=== PATIENT | male | born 1990 | race Caucasian/White ===

== ENCOUNTER 2020-10-17 03:04 | Emergency (ER) | payer SELFPAY ==
[2020-10-17 03:05] VITALS: BP 152/109; PULSE 108; RESP 18; TEMP 36.5; O2SAT 95; BMI 23.1
--- NOTE | 2020-10-17 03:20 | ED.DCSUM_ITS ---
History of Present Illness Chief Complaint: Complaint Informant: Patient Narrative: he states he is noticed some dysuria with voiding. Wanted to make sure nothing was okay. Having unprotected sex with one partner. No testicular lesions or pain. No scrotal lesions or pain. Denies any other symptoms. This just started today. Wanted to make sure nothing was okay with his skin. Denies any other symptoms. No discharge Past Medical History - Allergies and Home Meds Allergies/Adverse Reactions: Allergies No Known Allergies Allergy (Verified 10/17/20 03:08) Primary Care Physician: Sen Galicia III, MD [Primary Care Provider] - Prior records reviewed: Yes Past Medical History: None Surgical History: - - Reviewed Smoking Status: Current every day smoker Alcohol: None Drugs: None Review of Systems General: Denies: Chills, Fever, Sweats Eyes: Denies: Visual changes - bilaterally, Diplopia ENT: Denies: Rhinorrhea, Sore throat Cardiovascular: Denies: Chest pain, Palpitations Respiratory: Denies: Dyspnea, Cough, Dyspnea on exertion Gastrointestinal: Denies: Abdominal pain, Nausea, Vomiting, Diarrhea, Melena, Hematochezia Genitourinary: Reports: Dysuria. Denies: Hematuria, Frequency Musculoskeletal: Denies: Back pain, Extremity Pain Skin: Denies: Rash, Wounds Neurological: Denies: Headache, Weakness, Numbness Physical Exam Vital Signs/Narrative: Vital Signs Temp Pulse Resp BP Pulse Ox 10/17/20 03:05 97.7 F L 108 H 18 152/109 H 95 General: Well nourished, Well developed, No Acute Distress Head: Normocephalic, Atraumatic Eyes: Perrl, EOMI ENT: Moist mucous membranes, No rhinorrhea Neck: Supple, Nontender Cardiovascular: Regular rate, Regular rhythm, No murmurs Respiratory: No distress, CTA bilaterally, Chest nontender Abdomen: Soft, Nontender, Nondistended, Normal bowel sounds : - - Genital exam normal. External exam and urethra normal. No discharge up on milking. Testicles normal. No lesions Back: Nontender, Normal Inspection Extremities: Nontender, No edema Skin: Normal color, No rash Neurological: Alert, Oriented x3, Cranial nerves II-XII grossly intact, Normal Strength, Normal Sensation Psychological: Normal affect, Normal Mood Diagnostic/Tx/Re-eval - Medical Decision Making Discussed case with patient. He would like gonorrhea and Chlamydia testing just to be safe. Also request treatment. Will be given ceftriaxone and azithromycin. We will follow-up for his test results and notify his partner if positive. Will avoid sex until test results if positive will avoid sex for 1 week ED Disposition - Plan for ED Patient: Disposition: Home or Assisted Living Diagnosis: Urethritis Instructions: ED STI Male Treated Referrals: Sen Galicia III, MD [Primary Care Provider] -
[2020-10-17] MEDS: Azithromycin 250 MG Tablet 1000 MG PO (03:27)
[2020-10-17] MEDS: Ceftriaxone 500 MG Vial 250 MG IM (03:40)
[2020-10-17 06:47] LABS: Chlamydia Trachomatis by PCR Negative (Negative); Neisserai gonorrhoeae by PCR Negative (Negative); Probe Check PASS; Sample Adequacy Control PASS; Specimen Processing Control PASS
== END 2020-10-17 05:17 | disposition home or self-care (01) ==
LOC: ED 05:15
PROVIDERS: Emergency Provider Emergency Medicine
DX: N34.2 Other urethritis (principal); F17.200 Nicotine dependence, unspecified, uncomplicated
CPT/HCPCS: 87491; 87591; 96372; 99283

== ENCOUNTER 2022-01-11 18:19 | Emergency (ER) | payer MEDICAID, SELFPAY ==
[2022-01-11 18:20] VITALS: BP 153/86; PULSE 106; RESP 17; TEMP 37.1; O2SAT 99; BMI 28.7
[2022-01-11 19:17] LABS: Absolute Lymphocyte Count 1.61 X10^3/uL (0.83-4.51); Absolute Neutrophil Count 7.3 X10^3/uL (2.0-7.7); Basophil# 0.03 X10^3/uL; Basophil% 0.3 % (0-1); Hematocrit 49.3 % (40-54); Hemoglobin 16.9 g/dL (13.0-16.5); Lymphocyte # 1.61 X10^3/ul (0.83-4.51); Mean Corp Hgb Conc 34.3 g/dL (32-36); Mean Corpuscular Hgb 32.9 pg (27.0-32.0); Mean Corpuscular Volume 95.9 fL (80-94); Mean Platelet Vol. 9.6 fl (6.2-12.0); Monocyte# 0.96 X10^3/uL; Monocyte% 9.5 % (0-10); NRBC Flagged by Analyzer 0 % (0-5); Neutrophil # 7.33 X10^3/uL (2.7-7.7); Neutrophil % 72.6 % (47-70); Platelet Count 281 K/mm3 (150-450); RBC Distribution Width CV 13.8 % (11.6-14.6); RBC Distribution Width SD 49.6 fl (35.1-43.9); Red Blood Count 5.14 M/mm3 (4.6-6.2); White Blood Count 10.1 K/mm3 (4.4-11.0)
[2022-01-11 19:38] LABS: Anion Gap 3 (5-15); BUN 10 mg/dL (7-18); Calcium,Total 9.1 mg/dL (8.5-10.1); Chloride 108 mmol/L (98-107); Creatinine, Serum 1.11 mg/dL (0.70-1.30); EST Glomerular Filtration Rate 83 mL/min (>60); Est Glom Filt Rate - Afr Amer 100 mL/min (>60); Glucose 113 mg/dL (74-106); Potassium 4.6 mmol/L (3.5-5.1); Sodium Level 140 mmol/L (136-145)
[2022-01-11 19:54] LABS: Bacteria 0 SEEN /hpf (None Seen); Mucous, Urine 0 SEEN /hpf (<or=2+); Red Blood Cells-Urine 0 SEEN /hpf (0-5); Squamous Epithelial Cells - UA 0 SEEN /hpf (0-5); White Blood Cells 0 SEEN /hpf (0-5)
[2022-01-11 19:55] LABS: Color, Urine Yellow (Yellow); Glucose, Dipstick Normal (Normal); Ketone-Dipstick Negative (Negative); Leukocyte Esterase-Dipstick Negative /ul (Negative); Nitrite-Dipstick Negative (Negative); Occult Blood-Urine Negative /ul (Negative); Protein-Dipstick 15 mg/dl (Negative); Urine Bilirubin Dipstick Negative (Negative); Urine Clarity Clear (Clear); Urine Urobilinogen Normal (Normal)
--- NOTE | 2022-01-11 19:58 | CM.ED ---
SW Note Referral Source: Case Find Referral Reason: No PCP SW met with patient. Patient reports no PCP. SW provided patient with [facility]. Patient reports no other needs or issues. SW remains available. Evelyne PIERCE
--- NOTE | 2022-01-11 20:20 | ED.VIS.GI ---
HPI HPI - GI History of Present Illness Chief Complaint: Abd Pain Informant: patient Abdominal Pain/Flank Pain Onset: Days (3) Timing: Continuous Quality: Aching Location: LUQ Current Severity: Moderate Maximum Severity: Moderate Worsened by: Food (Soon after it is swallowed and gets into his stomach), Movement and - (Taking deep breaths worsens pain when it is significant) Relieved by: Remaining Still and - (No improvement after bowel movements) Nausea/Vomiting/Emesis GI Symptom: Negative for Nausea and Vomiting Diarrhea/Melena/Hematochezia GI Symptom: Negative for Diarrhea, Melena and Hematochezia Associated Symptoms Associated Symptoms: Negative for Dysuria, Frequency, Hematuria and Urgency Narrative Narrative: Patient with left upper quadrant pain that radiates a little bit into his side for the last couple days, gradual in onset, worsening, worse when he eats and soon afterwards. He denies any nausea vomiting melena. No fevers or chills. No coughing although sometimes when the pain is bad it makes him feel little short of breath. No pain into his back. Occasionally radiates up towards his left chest. But not his shoulder. PFSH PFSH Medical History no medical history no medical history Home Medications dicyclomine 20 mg PO Q6H PRN PRN #20 capsule 01/11/22 [Rx Last Taken Unknown] pantoprazole [Protonix] 40 mg PO DAILY #30 tab 01/11/22 [Rx Last Taken Unknown] Allergy/AdvReac Type Severity Reaction Status Date / Time No Known Allergies Allergy Verified 01/11/22 18:19 Surgical History no surgical history no surgical history Social History Smoking Status: Current every day smoker tobacco type: cigarettes ROS ROS ED Constitutional Constitutional ED: Denies chills or fever(s) Eyes Eyes: Denies change in vision or diplopia ENT ENT ED: Denies rhinorrhea or sore throat Cardiovascular Cardiovascular: Denies chest pain or palpitations Respiratory/Chest Respiratory/Chest: Reports as per HPI and dyspnea; Denies cough Gastrointestinal Gastrointestinal: Reports as per HPI and abdominal pain; Denies diarrhea, nausea or vomiting Genitourinary Genitourinary ED: Denies dysuria or hematuria Musculoskeletal Musculoskeletal: Denies back pain or neck pain Integumentary Denies abscess or rash Neurologic Neurologic: Denies headache(s), paresthesias or weakness Psychiatric Psychiatric: Denies anxiety or suicidal thoughts EXAM Physical Exam Const Vital Signs: 01/11/22 18:20 01/11/22 21:00 Temperature 98.8 F Temperature Source Temporal Pulse Rate 106 H Respiratory Rate 17 18 Blood Pressure 153/86 H Blood Pressure Mean 108 Pulse Ox 99 Oxygen Delivery Method Room Air Positive well nourished and well developed General Appearance ED: well developed and NAD HEENT Reports moist mucous membranes normocephalic and atraumatic Eyes PERRL and EOMs intact bilaterally Neck full ROM and supple Resp normal respiratory effort, normal air movement, no retractions, no use of accessory muscles and clear to auscultation bilaterally Cardio regular rate, regular rhythm and no murmurs Rate: Negative for tachycardic GI non-distended GI Narrative: Point tender left upper quadrant subcostal. No other areas of tenderness. No guarding or rebound. Very benign abdomen otherwise. Auscultation: normoactive bowel sounds Palpation: soft Back/Spine no CVA tenderness General Back: other FROM Extremity normal to inspection General Extremety ED: Negative for edema, pulses abnormal or tenderness General Extremity: Negative for edema or pulses abnormal Neuro oriented x3, CN's II-XII intact bilaterally and no sensory deficits noted Sensorium / Orientation: awake and alert Motor Exam: strength 5/5 throughout Skin no rashes or lesions noted and no wounds MDM MDM MDM Narrative Medical decision making narrative: Basic labs urinalysis unremarkable. I suspect this is upper GI likely stomach in etiology. Therefore he was treated with a GI cocktail, small dose of Toradol, dicyclomine, and pantoprazole orally and observed. On reevaluation he states he feels a lot better his discomfort is gone his exam is improved, and I think we can discharge him in stable condition without imaging at this time since this sounds like GI related pain. We will give him some prescriptions and advise outpatient follow-up. Apparently the patient is in 180 right now, for addiction issues. Has no PCP. Referred to the next doctor on the unassigned list Dr. Schafer. Lab Data Attestation: I reviewed the patient's lab results. Labs: Laboratory Results - last 24 hr 01/11/22 01/11/22 01/11/22 19:05 19:05 19:45 WBC 10.1 RBC 5.14 Hgb 16.9 H Hct 49.3 MCV 95.9 H MCH 32.9 H MCHC 34.3 RDW Std Deviation 49.6 H RDW Coeff of Mireya 13.8 Plt Count 281 MPV 9.6 Immature Gran % (Auto) 0.600 Neut % (Auto) 72.6 H Lymph % (Auto) 16.0 L [place] % (Auto) 9.5 Eos % (Auto) 1.0 Baso % (Auto) 0.3 Absolute Neuts (auto) 7.3 Absolute Lymphs (auto) 1.61 Nucleated RBC % 0 Sodium 140 Potassium 4.6 Chloride 108 H Carbon Dioxide 29.0 Anion Gap 3 L BUN 10 Creatinine 1.11 Estim Creat Clear Calc 95.00 Est GFR (MDRD) Af Amer 100 Est GFR (MDRD) Non-Af 83 BUN/Creatinine Ratio 9.0 L Glucose 113 H Calcium 9.1 Urine Color Yellow Urine Clarity Clear Urine pH 5.0 Ur Specific Sisters 1.020 Urine Protein 15 H Urine Glucose (UA) Normal Urine Ketones Negative Urine Occult Blood Negative Urine Nitrite Negative Urine Bilirubin Negative Urine Urobilinogen Normal Ur Leukocyte Esterase Negative Urine RBC 0 SEEN Urine WBC 0 SEEN Ur Squamous Epith Cells 0 SEEN Urine Bacteria 0 SEEN Urine Mucus 0 SEEN Discharge Plan Triage Chief Complaint: Abd Pain ED Provider: Chivo Gomez Dx/Rx/DC Orders Clinical Impression: Acute abdominal pain in left upper quadrant Instructions: Abdominal Pain Prescriptions: New dicyclomine 10 MG capsule 20 mg PO Q6H PRN PRN (Reason: abdominal discomfort) Qty: 20 RF: 0 pantoprazole [Protonix] 40 mg tablet,delayed release (DR/EC) 40 mg PO DAILY Qty: 30 RF: 0 Primary Care Provider: Care Physician,No Primary Referrals: Amber Schafer DO [STAFF PHYSICIAN] - 1 Week if not improving Care Physician,No Primary [Primary Care Provider] - Disposition Disposition: Home, Self Care
[2022-01-11] MEDS: Pantoprazole Sodium 40 MG Tablet PO (20:35)
[2022-01-11] MEDS: Dicyclomine 10 MG Capsule 20 MG PO (20:35)
[2022-01-11] MEDS: Mag Hydrox/Al Hydrox/Simeth 30 ML UDC PO (20:36)
[2022-01-11] MEDS: Ketorolac 15 MG/ML Vial IV (20:36)
[2022-01-11 21:00] VITALS: RESP 18
== END 2022-01-11 22:19 | disposition home or self-care (01) ==
PROVIDERS: Emergency Provider Emergency Medicine; Visit Provider Emergency Medicine
DX: R10.12 Left upper quadrant pain (principal); F17.210 Nicotine dependence, cigarettes, uncomplicated
CPT/HCPCS: 80048; 81001; 85025; 96374; 99284

== ENCOUNTER 2022-10-27 10:44 | Emergency (ER) | payer OTHER, MEDICAID, SELFPAY ==
[2022-10-27] VITALS (14 sets, daily range): BP systolic 138–184; BP diastolic 74–126; PULSE 79–94; RESP 14–24; TEMP 36.6–36.7; O2SAT 95–100; BMI 32.1
--- NOTE | 2022-10-27 10:55 | CT_ITS ---
INDICATION: Trauma EXAMINATION: CT BRAIN - CT Head or Brain W/O Contrast Injection TECHNIQUE: Multiple axial images were obtained of the head without intravenous contrast. A radiation dose optimization technique was used for this scan. IV Contrast dosage and agent: None. COMPARISON: None FINDINGS: No acute intracranial hemorrhage. No significant midline shift. The ventricles are normal size and configuration for patient''s age. Matias-white matter differentiation is maintained. No acute infarct. No significant cerebral edema. No parenchymal masses. No acute calvarial fracture. Soft tissues are unremarkable. Orbits and globes are intact. Minimal mucosal thickening in the sinuses. Sinuses are overall patent. Mastoid air cells are clear. CT/Brain/Head without Contrast IMPRESSION: No acute intracranial findings. Electronically Signed: Candelario Flores, at 11:47 EST ,
--- NOTE | 2022-10-27 10:55 | CT_ITS ---
INDICATION: Trauma EXAMINATION: CT CERVICAL SPINE - CT Spine Cervical W/O Contrast Injection TECHNIQUE: Helically acquired images were obtained of the cervical spine. 2D reformatted images were reviewed. A radiation dose optimization technique was used for this scan. IV Contrast dosage and agent: None. COMPARISON: None. FINDINGS: No acute fracture, subluxation, or malalignment. Vertebral body heights and alignments are maintained. No spondylolisthesis. No significant degenerative changes. No destructive osseous lesions. Soft tissues are unremarkable. Visualized lung apices are clear. No other significant findings. CT/Spine Cervical without Contras IMPRESSION: No evidence of acute cervical spinal fracture or spondylolisthesis. Electronically Signed: Candelario Flores, at 11:50 EST ,
--- NOTE | 2022-10-27 10:58 | EDS_ITS ---
HPI History of Present Illness Chief Complaint: Trauma Informant: patient Narrative Narrative: Patient had a stack of wooden pallets that tipped over and fell on him. He does not think he lost consciousness but evidently there is reports of seeing that he might have. This is unclear. Patient's primary complaint is right forearm area pain. He has some pain in the right leg also. Although he has pain, he does not want any controlled substances for pain as he is a recovering addict and wants to stay off of these meds. He denies abdominal pain or chest pain. He denies pelvic pain. No trouble breathing. He is not sure if he has a headache. He states his arm hurts a lot so it is hard to tell. He denies numbness and tingling. [facility] Medical History (Updated 10/27/22 @ 15:[address] Yousif Gant MD) MRSA (methicillin resistant Staphylococcus aureus) carrier Substance abuse Viral meningitis Home Medications buprenorphine 8 mg-naloxone 2 mg sublingual film 1 film sublingual BID 10/27/22 [History Last Taken Unknown] bupropion HCl 150 mg 24 hr tablet, extended release 150 mg PO DAILY 10/27/22 [History Last Taken Unknown] buspirone 7.5 mg tablet 7.5 mg PO BID 10/27/22 [History Last Taken Unknown] hydroxyzine pamoate 25 mg capsule 25 mg PO TID PRN Anxiety 10/27/22 [History Last Taken Unknown] ketorolac 10 mg tablet 10 mg PO TID PRN pain 5 days #15 tabs 10/27/22 [Rx Last Taken Unknown] lamotrigine 100 mg tablet 100 mg PO DAILY 10/27/22 [History Last Taken Unknown] Allergy/AdvReac Type Severity Reaction Status Date / Time No Known Allergies Allergy Verified 10/27/22 10:50 Surgical History History of tonsillectomy Social History Smoking Status: Current every day smoker tobacco type: cigarettes ROS ROS ED Constitutional Constitutional ED: Denies chills or fever(s) Eyes Eyes: Denies change in vision ENT ENT ED: Denies rhinorrhea or sore throat Cardiovascular Cardiovascular: Denies chest pain, palpitations or racing heartbeat Respiratory/Chest Respiratory/Chest: Denies cough or dyspnea Gastrointestinal Gastrointestinal: Denies abdominal pain, nausea or vomiting Genitourinary Genitourinary ED: Denies hematuria Musculoskeletal Musculoskeletal: Reports arthralgias and other Details: Primary complaint is right forearm pain. ; Denies back pain Integumentary Reports Abrasions and other Details: Abrasions to right jarrell. Neurologic Neurologic: Denies paresthesias or weakness Psychiatric Psychiatric: Reports depression and other Details: Patient is on meds for depression Endocrine Endocrinology: Denies polydipsia or polyuria Hematologic/Lymphatic Hematologic/Lymphatic: Denies easy bleeding or easy bruising Allergic/Immunologic Allergic/Immunologic ED: Denies urticaria EXAM Physical Exam Const Vital Signs: 10/27/22 10:45 10/27/22 10:44 10/27/22 11:21 Temperature 97.9 F Temperature Source Temporal Pulse Rate 90 82 Pulse Rate [1 (Initial Baseline)] Pulse Rate [2] Pulse Rate [3] Respiratory Rate 14 14 Respiratory Rate [1 (Initial Baseline)] Respiratory Rate [2] Respiratory Rate [3] Respiratory Effort Normal Non-Labored Respiratory Depth Normal Respiratory Pattern Normal Blood Pressure 138/97 H 152/87 H Blood Pressure [1 (Initial Baseline)] Blood Pressure [2] Blood Pressure [3] Blood Pressure Mean 110 108 Pulse Ox 95 97 99 Oxygen Delivery Method Room Air Room Air Room Air Oxygen Delivery Method [1 (Initial Baseline)] Oxygen Delivery Method [2] Oxygen Delivery Method [3] Oxygen Flow Rate (L/min) Oxygen Flow Rate (L/min) [1 (Initial Baseline)] Oxygen Flow Rate (L/min) [2] Oxygen Flow Rate (L/min) [3] 10/27/22 11:44 10/27/22 12:44 10/27/22 13:00 Temperature Temperature Source Pulse Rate 85 83 80 Pulse Rate [1 (Initial Baseline)] Pulse Rate [2] Pulse Rate [3] Respiratory Rate 16 14 16 Respiratory Rate [1 (Initial Baseline)] Respiratory Rate [2] Respiratory Rate [3] Respiratory Effort Respiratory Depth Respiratory Pattern Blood Pressure 148/74 H 161/80 H 152/78 H Blood Pressure [1 (Initial Baseline)] Blood Pressure [2] Blood Pressure [3] Blood Pressure Mean 98 107 102 Pulse Ox 98 100 98 Oxygen Delivery Method Room Air Room Air Room Air Oxygen Delivery Method [1 (Initial Baseline)] Oxygen Delivery Method [2] Oxygen Delivery Method [3] Oxygen Flow Rate (L/min) Oxygen Flow Rate (L/min) [1 (Initial Baseline)] Oxygen Flow Rate (L/min) [2] Oxygen Flow Rate (L/min) [3] 10/27/22 13:48 10/27/22 13:55 10/27/22 14:12 Temperature Temperature Source Pulse Rate 83 Pulse Rate [1 (Initial Baseline)] 92 Pulse Rate [2] 79 Pulse Rate [3] 94 Respiratory Rate 15 Respiratory Rate [1 (Initial Baseline)] 16 Respiratory Rate [2] 24 H Respiratory Rate [3] 21 H Respiratory Effort Respiratory Depth Respiratory Pattern Blood Pressure 169/86 H Blood Pressure [1 (Initial Baseline)] 184/126 H Blood Pressure [2] 184/126 H Blood Pressure [3] 157/115 H Blood Pressure Mean Pulse Ox 100 Oxygen Delivery Method Nasal Cannula Room Air Oxygen Delivery Method [1 (Initial Baseline)] Non-Rebreather Oxygen Delivery Method [2] Non-Rebreather Oxygen Delivery Method [3] Non-Rebreather Oxygen Flow Rate (L/min) 2 Oxygen Flow Rate (L/min) [1 (Initial Baseline)] 15 Oxygen Flow Rate (L/min) [2] 15 Oxygen Flow Rate (L/min) [3] 15 10/27/22 14:17 10/27/22 14:07 10/27/22 14:00 Temperature Temperature Source Pulse Rate 81 Pulse Rate [1 (Initial Baseline)] Pulse Rate [2] Pulse Rate [3] Respiratory Rate 17 Respiratory Rate [1 (Initial Baseline)] Respiratory Rate [2] Respiratory Rate [3] Respiratory Effort Respiratory Depth Respiratory Pattern Blood Pressure 159/88 H Blood Pressure [1 (Initial Baseline)] Blood Pressure [2] Blood Pressure [3] Blood Pressure Mean 111 Pulse Ox 99 Oxygen Delivery Method Room Air Nasal Cannula Room Air Oxygen Delivery Method [1 (Initial Baseline)] Oxygen Delivery Method [2] Oxygen Delivery Method [3] Oxygen Flow Rate (L/min) 2 Oxygen Flow Rate (L/min) [1 (Initial Baseline)] Oxygen Flow Rate (L/min) [2] Oxygen Flow Rate (L/min) [3] 10/27/22 15:05 Temperature Temperature Source Pulse Rate 85 Pulse Rate [1 (Initial Baseline)] Pulse Rate [2] Pulse Rate [3] Respiratory Rate 16 Respiratory Rate [1 (Initial Baseline)] Respiratory Rate [2] Respiratory Rate [3] Respiratory Effort Respiratory Depth Respiratory Pattern Blood Pressure 147/88 H Blood Pressure [1 (Initial Baseline)] Blood Pressure [2] Blood Pressure [3] Blood Pressure Mean 107 Pulse Ox 97 Oxygen Delivery Method Oxygen Delivery Method [1 (Initial Baseline)] Oxygen Delivery Method [2] Oxygen Delivery Method [3] Oxygen Flow Rate (L/min) Oxygen Flow Rate (L/min) [1 (Initial Baseline)] Oxygen Flow Rate (L/min) [2] Oxygen Flow Rate (L/min) [3] Positive well nourished and well developed General Appearance ED: well developed HEENT HEENT Narrative: I do not see any external head trauma. atraumatic Eyes PERRL and EOMs intact bilaterally Neck Neck Narrative: C-collar is on and was kept on. I am not getting any deformity and neck tenderness. But the patient's arm is somewhat tender and this might distract him somewhat. Chest Wall inspection of chest normal and palpation of chest normal Chest Narrative: No tenderness with AP or lateral compression. No subcutaneous air. No crepitance. Resp normal respiratory effort and clear to auscultation bilaterally Cardio regular rhythm and no murmurs Rate: regular rate GI normal to inspection, nondistended, normoactive bowel sounds, non-tender and non-distended Back/Spine no thoracic nor lumbar tenderness; Negative for normal to inspection Extremity Extremity Narrative: Patient has deformity to his distal forearm just proximal to the wrist. He can wiggle all his fingers. He can tell me exactly what finger I am touching. I do not see any open areas. He also has an abrasion/contusion to his right anterior jarrell. No active bleeding. There is no deformity however though. No tenderness anywhere to the clavicles left upper or left lower extremities. No tenderness with compression of the pelvis. Neuro oriented x3, no focal motor deficits and no sensory deficits noted Sensorium / Orientation: alert; Negative for orientation impaired, lethargic or stuporous Psych mental status grossly normal Skin Skin Narrative: Abrasion as above. MDM MDM MDM Narrative Medical decision making narrative: Patient is given Toradol for pain. I think his chance of intracranial injury is extremely small but we will evaluate this. I will also give him Benadryl to see if this will help with relaxing him a little bit. I am trying to avoid narcotics or other controlled substance per patient request. My suspicion is we will likely need something to manage his pain but we will try to hold off as much as we can per patient request. Imaging shows acute displaced right distal radius fracture. No other acute process. CBC electrolytes urine are normal. I discussed risk benefits and options. We agreed to go with conscious sedation for reduction of wrist with splinting. This was done he tolerated well. See procedure note. I then discussed the case with orthopedics Dr. Ash. He will see him in follow-up probably on Tuesday. He may need surgery. I again talked with patient and family about pain control. He is resting very quietly now. We did give him some Ativan earlier to try to relax him and is helped him quite a bit. We are going to try avoiding narcotics. He will use ice and elevation. He will use Benadryl. He will use [id number] Tylenol. I will write for oral Toradol. Procedure: Procedural sedation and reduction of right distal radius fracture with splint ing: We discussed risk benefits options. Timeout was performed. He was kept on end- tidal CO2 and oxygen. A total of 200 mg of dipper Van was used in sequence. We got him sedated enough. He never dropped his saturations. We were able to use traction and repeat placement of the fragment. It was then splinted. I held it in a volar tilt until cast was solidified. I stayed in the room and he was awake and alert. Post reduction x-rays show significant improvement. Lab Data Attestation: I reviewed the patient's lab results. Labs: Laboratory Results - last 24 hr 10/27/22 10/27/22 10/27/22 11:21 11:21 14:41 WBC 8.5 RBC 4.78 Hgb 15.2 Hct 43.9 MCV 91.8 MCH 31.8 MCHC 34.6 RDW Std Deviation 42.6 RDW Coeff of Mireya 12.7 Plt Count 302 MPV 10.3 Immature Gran % (Auto) 0.500 Neut % (Auto) 48.7 Lymph % (Auto) 40.8 [place] % (Auto) 7.4 Eos % (Auto) 2.0 Baso % (Auto) 0.6 Absolute Neuts (auto) 4.1 Absolute Lymphs (auto) 3.46 Nucleated RBC % 0 Sodium 141 Potassium 3.5 Chloride 106 Carbon Dioxide 27.0 Anion Gap 8 BUN 14 Creatinine 1.07 Estim Creat Clear Calc 97.66 Est GFR (MDRD) Af Amer 104 Est GFR (MDRD) Non-Af 86 BUN/Creatinine Ratio 13.1 Glucose 135 H Calcium 9.2 Urine Color Yellow Urine Clarity Clear Urine pH 8.0 Ur Specific [place] 1.015 Urine Protein Negative Urine Glucose (UA) Normal Urine Ketones Negative Urine Occult Blood Negative Urine Nitrite Negative Urine Bilirubin Negative Urine Urobilinogen Normal Ur Leukocyte Esterase Negative Urine RBC 0 SEEN Urine WBC 0 SEEN Ur Squamous Epith Cells 0 SEEN Urine Bacteria 0 SEEN Urine Mucus 0 SEEN Radiography Diagnostic Testing: Clinical Impression(s) from Imaging Studies Brain CT 10/27/22 10:55 IMPRESSION: No acute intracranial findings. Electronically Signed: Candelario Flores, at 11:47 EST Reading Location ID and State: [facility] / [place] Tel , Service support , Cervical Spine CT 10/27/22 10:55 IMPRESSION: No evidence of acute cervical spinal fracture or spondylolisthesis. Electronically Signed: Candelario Flores, at 11:50 EST Reading Location ID and State: [facility] / [place] Tel , Service support , Chest X-Ray 10/27/22 11:31 IMPRESSION: No radiographic evidence of acute cardiopulmonary disease. Electronically Signed: Candelario Flores, at 12:08 EST , Forearm X-Ray 10/27/22 11:31 IMPRESSION: Acute displaced distal radius fracture. Electronically Signed: Candelario Flores, at 12:09 EST Reading Location ID and State: [facility] / [place] Tel , Service support , Pelvis X-Ray 12/28/22 11:31 IMPRESSION: No acute findings. Electronically Signed: Candelario Flores, at 12:10 EST , Tibia/Fibula X-Ray 10/27/22 11:31 IMPRESSION: No acute findings in the right tibia/fibula. Electronically Signed: Candelario Flores, at 12:11 EST , Wrist X-Ray 10/27/22 14:05 IMPRESSION: Distal radial fracture with intra-articular extension, as described. Electronically Signed: Deric Gonzalez, at 14:22 EST , X-ray of the pelvis, chest x-ray, tib-fib on the right cervical spine CT and head CT showed no acute process. Forearm x-ray does show acute displaced distal radius fracture. Discharge Plan Triage Chief Complaint: Trauma ED Provider: Yousif Gant Dx/Rx/DC Orders Clinical Impression: Closed right radial fracture, H/O multiple trauma, Closed head injury, Contusion of leg, right Instructions: ED Forearm Fracture with Reduction Prescriptions: New ketorolac 10 mg tablet 10 mg PO TID PRN (Reason: pain) 5 Days Qty: 15 0RF No Action buspirone 7.5 mg tablet 7.5 mg PO BID Label Comments: Take 1 tablet by mouth three times a day lamotrigine 100 mg tablet 100 mg PO DAILY hydroxyzine pamoate 25 mg capsule 25 mg PO TID PRN (Reason: Anxiety) Label Comments: Take 1 capsule by mouth three times a day as needed for anxiety bupropion HCl 150 mg tablet extended release 24 hr 150 mg PO DAILY Label Comments: Take 1 tablet by mouth every morning buprenorphine-naloxone 8-2 mg film 1 film sublingual BID Label Comments: Place 1 film under tongue twice a day Primary Care Provider: MODESTO YE Referrals: Petros Ash DO [Med Staff - Active Staff] - As soon as possible Care Physician,No Primary [Non-Staff] - Disposition Disposition: Home, Self Care
[2022-10-27] MEDS: Ketorolac 15 MG/ML Vial IV ×2 (11:02→14:19)
[2022-10-27] MEDS: DiphenhydrAMINE 50 MG/ML Syringe IV (11:02)
[2022-10-27 11:29] LABS: Absolute Lymphocyte Count 3.46 X10^3/uL (0.83-4.51); Absolute Neutrophil Count 4.1 X10^3/uL (2.0-7.7); Basophil# 0.05 X10^3/uL; Basophil% 0.6 % (0-1); Eosinophil# 0.17 X10^3/uL; Hematocrit 43.9 % (40-54); Hemoglobin 15.2 g/dL (13.0-16.5); Lymphocyte # 3.46 X10^3/ul (0.83-4.51); Lymphocyte % 40.8 % (19-41); Mean Corp Hgb Conc 34.6 g/dL (32-36); Mean Corpuscular Hgb 31.8 pg (27.0-32.0); Mean Corpuscular Volume 91.8 fL (80-94); Mean Platelet Vol. 10.3 fl (6.2-12.0); Monocyte# 0.63 X10^3/uL; Monocyte% 7.4 % (0-10); NRBC Flagged by Analyzer 0 % (0-5); Neutrophil # 4.14 X10^3/uL (2.7-7.7); Neutrophil % 48.7 % (47-70); Platelet Count 302 K/mm3 (150-450); RBC Distribution Width CV 12.7 % (11.6-14.6); RBC Distribution Width SD 42.6 fl (35.1-43.9); Red Blood Count 4.78 M/mm3 (4.6-6.2); White Blood Count 8.5 K/mm3 (4.4-11.0)
--- NOTE | 2022-10-27 11:31 | RAD_ITS ---
INDICATION: Trauma EXAMINATION/TECHNIQUE: X-RAY - RIGHT XR Tibia/Fibula 2 Views 3 VIEWS COMPARISON: None. FINDINGS: No acute fracture or subluxation. Soft tissues are unremarkable. No radiopaque foreign bodies. RAD/Tibia & Fibula 2 Views IMPRESSION: No acute findings in the right tibia/fibula. Electronically Signed: Candelario Flores, at 12:11 EST ,
--- NOTE | 2022-10-27 11:31 | RAD_ITS ---
INDICATION: Trauma, fracture EXAMINATION/TECHNIQUE: X-RAY - RIGHT XR Forearm 2 Views 2 VIEWS COMPARISON: None. FINDINGS: There is an acute comminuted predominantly transverse fracture through the distal radial epiphysis with dorsal angulation of the distal radius and anterior displacement of the proximal radius. Associated overlying soft tissue swelling. The remainder of the bones are within normal limits. RAD/Forearm 2 Views IMPRESSION: Acute displaced distal radius fracture. Electronically Signed: Candelario Flores, at 12:09 EST ,
--- NOTE | 2022-10-27 11:31 | RAD_ITS ---
INDICATION: Trauma EXAMINATION/TECHNIQUE: X-RAY - XR Pelvis 1 or 2 Views COMPARISON: None. FINDINGS: Overlying bowel gas somewhat obscures assessment of the lower sacrum. No acute fracture or dislocation. Joint spaces are intact. Femoral heads are well-seated within the acetabulum. Soft tissues are unremarkable. RAD/Pelvis 1 or 2 Views IMPRESSION: No acute findings. Electronically Signed: Candelario Flores, at 12:10 EST ,
--- NOTE | 2022-10-27 11:31 | RAD_ITS ---
INDICATION: Trauma EXAMINATION/TECHNIQUE: X-RAY - XR Chest 1 View COMPARISON: None. FINDINGS: Support devices: None. No focal consolidations, effusions, or sizable pneumothorax. Cardiomediastinal silhouette is within normal limits. No acute findings in the bones or soft tissues. RAD/Chest 1 View (Portable) IMPRESSION: No radiographic evidence of acute cardiopulmonary disease. Electronically Signed: Candelario Flores, at 12:08 EST ,
[2022-10-27 11:40] LABS: Anion Gap 8 (5-15); BUN 14 mg/dL (7-18); BUN/Creat Ratio 13.1 RATIO (10-20); Calcium,Total 9.2 mg/dL (8.5-10.1); Chloride 106 mmol/L (98-107); Creatinine, Serum 1.07 mg/dL (0.70-1.30); EST Glomerular Filtration Rate 86 mL/min (>60); Est Glom Filt Rate - Afr Amer 104 mL/min (>60); Estimated Creatinine Clearance 97.66 ml/min; Glucose 135 mg/dL (74-106); Potassium 3.5 mmol/L (3.5-5.1); Sodium Level 141 mmol/L (136-145)
--- NOTE | 2022-10-27 11:46 | ED.RN ---
PT YELLING AND GIOVANNASING D/T PAIN.
[2022-10-27] MEDS: Propofol 200 MG/20 ML Vial IV BOLUS (13:38)
--- NOTE | 2022-10-27 14:05 | RAD_ITS ---
STUDY: X-RAY - RIGHT WRIST REASON FOR EXAM: Male, 32 years old. Trauma. Pain. TECHNIQUE: 3 view(s) of the wrist were obtained 3 cast. COMPARISON: None. FINDINGS: Comminuted slightly impacted minimally displaced fracture of the distal radius with intra-articular extension. Normal radiocarpal articulation. Normal distal radioulnar articulation. Normal carpal bones. Normal carpal articulations. Normal carpometacarpal articulation of the thumb. Normal second through fifth carpometacarpal articulations. Normal visualized metacarpal bones. The soft tissue structures are unremarkable. RAD/Wrist min 3 Views IMPRESSION: Distal radial fracture with intra-articular extension, as described. Electronically Signed: Deric Gonzalez, at 14:22 EST ,
[2022-10-27] MEDS: LORazepam 2 MG/ML Syringe 1 MG IV (14:19)
[2022-10-27 14:53] LABS: Bacteria 0 SEEN /hpf (None Seen); Mucous, Urine 0 SEEN /hpf (<or=2+); Red Blood Cells-Urine 0 SEEN /hpf (0-5); Squamous Epithelial Cells - UA 0 SEEN /hpf (0-5); White Blood Cells 0 SEEN /hpf (0-5)
[2022-10-27 15:04] LABS: Color, Urine Yellow (Yellow); Glucose, Dipstick Normal (Normal); Ketone-Dipstick Negative (Negative); Leukocyte Esterase-Dipstick Negative /ul (Negative); Nitrite-Dipstick Negative (Negative); Occult Blood-Urine Negative /ul (Negative); Protein-Dipstick Negative (Negative); Specific Gravity, Urine 1.015 (1.002-1.030); Urine Bilirubin Dipstick Negative (Negative); Urine Clarity Clear (Clear); Urine Urobilinogen Normal (Normal)
== END 2022-10-27 16:26 | disposition home or self-care (01) ==
PROVIDERS: Emergency Provider Emergency Medicine; PCP Registered Nurse; Visit Provider Emergency Medicine
DX: S52.571A Other intraarticular fracture of lower end of right radius, initial encounter for closed fracture (principal); S09.90XA Unspecified injury of head, initial encounter; S80.12XA Contusion of left lower leg, initial encounter; F17.210 Nicotine dependence, cigarettes, uncomplicated; Z79.899 Other long term (current) drug therapy; W19.XXXA Unspecified fall, initial encounter
CPT/HCPCS: 70450; 71045; 72125; 72170; 73090; 73110; 73590; 80048; 81001; 85025; 96374; 96375; 96376; 99152; 99285; J7030; A4216

== ENCOUNTER 2022-11-05 11:19 | Day surgery (SDC) | payer OTHER, MEDICAID, SELFPAY ==
[2022-11-05] VITALS (7 sets, daily range): BP systolic 114–144; BP diastolic 71–92; PULSE 55–76; RESP 16–17; TEMP 36.4–36.9; O2SAT 95–100; BMI 28.7
--- NOTE | 2022-11-05 12:00 | RAD_ITS ---
STUDY: INTRAOPERATIVE FLUOROSCOPY TECHNIQUE: The examination was performed with referring physician in attendance. Under fluoroscopic observation, fluoroscopic images were obtained. Radiologist was not present for the study. Radiologist did not perform the procedure. This dictation is for documentation of the radiation dosage only. There is no interpretation of the images. TOTAL NUMBER OF IMAGES: 1 COMPARISON: None RADIATION DOSE: 0.59 mGy FLUOROSCOPY TIME: 34.9 seconds REASON FOR EXAM: FX Male, 32 years old. FINDINGS: There is a metal sideplate transfixing the distal radius. There are cortical screws holding the plate in place. RAD/Wrist 2 Views IMPRESSION: Fluoroscopic assistance images were obtained. Dictation for documentation purposes only. Electronically Signed: Jason Webster MD at 18:45 EST ,
[2022-11-05 12:08] LABS: Amphetamine Urine VISTA NEGATIVE (<1000 ng/mL); Barbiturate Urine VISTA NEGATIVE (< 200 ng/mL); Benzodiazepine Urine VISTA NEGATIVE (< 200 ng/mL); Cocaine Urine VISTA NEGATIVE (< 300 ng/mL); Ecstacy Urine VISTA NEGATIVE (< 500 ng/mL); Methadone Urine VISTA NEGATIVE (< 300 ng/mL); PCP Urine VISTA NEGATIVE (< 25 ng/mL); THC Urine VISTA NEGATIVE (< 50 ng/mL); Vista UDS pH Range 6
[2022-11-05] MEDS: Lactated Ringers 1,000 ML 15 ML IV ×2 (12:11→14:49)
[2022-11-05] MEDS: Cefazolin 2 GM in 0.9% Normal Saline 100 ML IV (13:17)
[2022-11-05] MEDS: Bupivacaine Mpf 0.5% 30 ML VIAL (14:17)
[2022-11-05] MEDS: Gabapentin 300 MG Capsule PO (14:40)
--- NOTE | 2022-11-05 15:05 | DCINST_ITS ---
Discharge Instructions Follow Up Care Test Results: Test results from this visit will be discussed in further detail at your follow- up appointment, if applicable. Discharge Plan Admission Primary Reason for Your Visit: Right wrist surgery Attending Provider: Petros Ash Primary Care Provider: MODESTO YE Instructions Additional Instructions / Restrictions: Follow preprinted instructions from your surgeons office. Discharge Orders/Prescriptions Prescriptions: New gabapentin 300 mg Capsule 300 mg PO TIDCM 14 Days Qty: 42 0RF ibuprofen 800 mg tablet 800 mg PO TID 30 Days Qty: 90 0RF Rx Instructions: Start ibuprofen after home Ketorolac is finished Continued buspirone 7.5 mg tablet 7.5 mg PO BID Label Comments: Take 1 tablet by mouth three times a day lamotrigine 100 mg tablet 100 mg PO DAILY hydroxyzine pamoate 25 mg capsule 25 mg PO TID PRN (Reason: Anxiety) Label Comments: Take 1 capsule by mouth three times a day as needed for anxiety bupropion HCl 150 mg tablet extended release 24 hr 150 mg PO DAILY Label Comments: Take 1 tablet by mouth every morning buprenorphine-naloxone 8-2 mg film 1 film sublingual BID Label Comments: Place 1 film under tongue twice a day ketorolac 10 mg tablet 10 mg PO TID PRN (Reason: pain) 5 Days Qty: 15 0RF Changed acetaminophen 500 mg Tablet 1,000 mg PO TID 30 Days Qty: 0 0RF Referrals / Follow Up: Petros Ash, [Med Staff - Active Staff] - MODESTO YE [employer]TE[employer]INE[employer] [Primary Care Provider] - Disposition Disposition (needs filled in before D/C Order can be placed): Home, Self Care
--- NOTE | 2022-11-05 15:05 | PCM.OPRPT ---
Report of Operation Date of Procedure: 11/05/22 Description of Surgical Findings:: Preoperative diagnosis: Right intra-articular distal radius fracture Postoperative diagnosis: Right intra-articular distal radius fracture Procedure: Open reduction internal fixation right distal radius greater than 3 parts Surgeon: DO Toribio Montiel Assistant: TAWANA Fenton Anesthesia: General endotracheal with axillary block Anesthesiologist: Dr. Chavez Complications: None apparent Drains: None Estimated blood loss: 5 cc Urinary output: None recorded IV fluids: 1 L crystalloid Specimens: None Surgical implants: Arthrex standard width right volar locking distal radius plate with cortical and locking screws Surgical indications: This is a 32-year-old male with history of substance abuse and opioid dependency who is currently taking Suboxone who sustained a work-related injury approximately 1 week ago resulting in a comminuted right distal radius fracture. He was seen in [facility] emergency department 10/27/2022. Closed reduction was performed due to the degree of displacement achieving a near anatomic reduction. I follow the patient up in the office. He was neurovascularly intact. Repeat x-rays demonstrated loss of volar tilt due to dorsal comminution. I recommended open reduction internal fixation of the right distal radius. The risks, benefits, alternatives to procedure reviewed with the patient at length and he agreed to proceed. Risk included but were not limited to bleeding, infection, stiffness, loss of life or limb, nonhealing bone or wounds, neurovascular injury, DVT or PE. Patient expressed understanding his risk and wished proceed with surgery. I spoke personally with the patient's nurse practitioner who prescribes Suboxone regarding perioperative pain management. We made a joint decision with the patient to continue Suboxone perioperatively and treat his surgical pain multimodal without opioids. Description of procedure: Patient was seen in preoperative holding area. He was identified by name, medical record number, date of . The operative extremity was marked with a surgical marker. We confirmed informed consent with the patient and all questions were answered to his satisfaction. An axillary block was placed by anesthesia staff prior to the procedure. At time of his procedure, patient was brought to the operative suite and positioned supine on a standard operating table. All bony prominences were well-padded. General anesthesia was administered. An LMA was placed. After adequate anesthesia, a well-padded pneumatic tourniquet was applied to the upper arm of the operative extremity. We then spun the bed 90 degrees. We prepped and draped the operative extremity in a normal, sterile orthopedic fashion. We then performed a timeout with all parties in attendance in agreement the side, site, and operation be performed. No concerns were voiced and we elected to proceed. 2 g Ancef was administered for antibiotic prophylaxis prior to the incision by anesthesia staff. I first exsanguinated the operative extremity with an Esmarch bandage. Tourniquet was inflated to 250 mmHg where remained up for 35 minutes. Esmarch was removed. I planned a standard FCR approach over the flexor carpi radialis tendon along the volar wrist. Skin was sharply incised with a 15 blade scalpel down to the level of the tendon sheath. The FCR tendon sheath was identified and split longitudinally in line with the incision. I then retracted the FCR tendon ulnarly, splitting the floor of the tendon sheath in line with the incision. The flexor pollicis longus muscle belly was then encountered and retracted ulnarly. The pronator quadratus was then encountered. A self-retaining retractor was placed deep. The pronator quadratus was partially torn from the injury. Performed an L-shaped tenotomy of the pronator quadratus and subperiosteally elevated it ulnarly. This exposed the fracture site. I performed a reduction of the distal radius with longitudinal traction and volar translation of the carpus. Reduction was achieved and a percutaneous K wire was placed through the radial styloid traversing the fracture site. Provisional fluoroscopy orthogonally demonstrated acceptable reduction. I then held a volar locking plate along the volar cortex placing the plate carefully proximal to the watershed line in line with the long axis of the radius. This was held in place by 2 K wires. Fluoroscopy was used to confirm appropriate reduction of hardware. I then compressed the plate to bone using a bicortical cortex screw in the distal segment as well as the shaft. Reduction was confirmed on x-ray and the plate appeared to be sitting flush with bone volarly. I then placed a series of locking screws through the distal cluster of the plate, all unicortical. I then exchanged the distal cortical screw for a unicortical locking screw. I utilized fluoroscopy to place 2 fluoroscopically guided locking screws in the radial styloid. I placed an additional bicortical cortex screw in the most proximal hole of the plate. A bicortical locking screw was placed in the most distal shaft screw hole of the plate. K wire was removed. Final fluoroscopic images were obtained demonstrated acceptable reduction and appropriate hardware position and size. I placed an additional 10 cc of 0.5% plain bupivacaine in the periincisional tissue as well as anesthetize the median nerve and superficial branch of radial nerve proximal to the fracture site. Tourniquet was then deflated. Hemostasis was excellent. There was good return of perfusion to the hand. I laid the pronator quadratus over top of the plate. I reapproximated the dermis with interrupted buried 3-0 Vicryl suture. Skin was finally reapproximated with a running 4-0 Monocryl suture and Dermabond. A sterile compression dressing was placed volarly. A well-padded short arm volar fiberglass splint was placed in slight extension of the wrist. Patient tolerated procedure well without apparent complication. He was safely extubated in the operative suite. He was transferred to his gurney and subsequently PACU in stable condition. Post Operative Plan: Weightbearing: Nonweightbearing operative extremity Antibiotics: 2 g Ancef x 1 dose preoperatively DVT Prophylaxis: Aspirin 81 mg twice daily for DVT prophylaxis starting postoperative day #1 Reveles: None Dressing: Maintain splint, keep it clean dry and intact until follow-up X-Rays: 2 weeks postop in the office Pain Medication: Continue home Suboxone. Multimodal analgesia with scheduled 800 mg ibuprofen 3 times a day, 1000 mg Tylenol 3?4 times per day, and gabapentin 300 mg 3 times a day. Ice and elevation encouraged. Follow-up: 2 weeks post-operatively with me in the office
== END 2022-11-05 16:32 | disposition home or self-care (01) ==
LOC: SDC 11:22 → AC 11:24
PROVIDERS: Anesthesiology; PCP Registered Nurse; Referring Provider Student in an Organized Health Care Education/Training Program; Visit Provider Student in an Organized Health Care Education/Training Program
PROC: (CPT 25609; principal; 2022-11-05 12:40)
DX: S52.571A Other intraarticular fracture of lower end of right radius, initial encounter for closed fracture (principal); F31.9 Bipolar disorder, unspecified; W20.8XXA Other cause of strike by thrown, projected or falling object, initial encounter; Y99.0 Civilian activity done for income or pay; K21.9 Gastro-esophageal reflux disease without esophagitis; R03.0 Elevated blood-pressure reading, without diagnosis of hypertension; E66.3 Overweight; Z68.28 Body mass index [BMI] 28.0-28.9, adult; Z87.891 Personal history of nicotine dependence
CPT/HCPCS: 25609; 01830; 73100; 76000; 80307; C1713; J7120; J2405

== ENCOUNTER 2023-02-01 16:00 | Outpatient (RCR) | payer OTHER, MEDICAID, SELFPAY ==
--- NOTE | 2022-12-06 16:55 | HP.OTEVAL_ITS ---
Patient's Visit Information SLOANE BLACK is a 32 year old M, referred to Occupational Therapy by Dr. Petros Ash, DO, with a diagnosis of S52.571D Oth intaartic fx low end R rad subs for clos fx w routn heal. Date of Evaluation: 12/06/22 Occupational Therapist: Eloisa Andino - Subjective Arrived on time for eval. Right wrist fracture s/p ORIF R wrist 11/05/[address] Ash. Reports he's having some numbness in the R hand/wrist, mostly in R first 2 digits but has a history of carpal tunnel in wrist as well. 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 Was previously working 50 hours/week, now working ~40 hours weekly - doing more light work. On workers comp. Patient wearing pre-luis wrist splint with stay in place most of the time, removing for showers and sleeping. Dad drove pt to appt, patient does not drive. Lives with parents who can assist with ADL's as needed. 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 provided post op exercises including prayer stretch, supination stretch ( said move arm daily at least), able to lift 1-2 pounds - ADLs Comments: some difficulty with ADL tasks with use of R wrist but is able to manage and has mom present to assist as needed - Pain R wrist 0 - Objective no bruising, or discoloration - ROM Wrist: active flexion 15; 30 extension; -20 deg full supination actively ROM Comments: ROM intact proximally both arms. able to oppose/make full fist - Strength Lateral Pinch: R 12; L 14 Tripod Pinch: R 5; L 16 Tip-to-Tip Pinch: R 4; L 14 Strength Comments: Completed gentle pinch to R hand, stopped if felt any pain. Good position of thumb/wrist noted. Therapist deferred technology education teacher at this time to not put too much pressure on wrist - Edema Wrist: R 7.25 inches Proximal Phalanx: R 8.75 inches Other: more swollen with splint on and end of the day. - Sensation Sensation Comments: numbness and tingling in R first 2 digits - Nine Hole Peg Right: 25.5 sec Left: 18.9 sec - Quick DASH-Disab of Arm,Shoulder& Hand Quick DASH Score: 63.6350 - Goals Goal:: Patient will demonstrate improved technology education teacher/pinch strength in R hand, evidenced by ability to technology education teacher/pinch at least 75% of the strength in left hand by discharge. Goal:: Patient will improve R wrist ROM evidenced by gaining at least 20 degrees of active flexion and extension by discharge. Goal:: Patient will improve fine motor dexterity on 9 hole peg test evidenced by improvement in time by 3 seconds by discharge. Goal:: Patient will report decreased sensitivity and numbness, evidenced by self report of reduction in sensitivity and numbness by at least 50% by discharge. Goal:: Patient will be indep with maintaining HEP. - Rehabilitation General Assessment: Arrived s/p 4 weeks from ORIF to R wrist d/t distal radius fracture. Presents with some swelling, stiffness, and pain in R wrist. Currently wearing pre-luis splint most of the time and participating in light work. Reports generally pain is under a 3 but increases with use of R wrist especially with resistive activities. Patient will be scheduled 2x/week for 6 weeks to improve ROM and strength of R wrist. Rehabilitation Potential: Good - Anticipated Interventions A/AAROM/PROM, Strengthening, Edema Control, Scar Care, Massage, Triggerpoint Release, Desensitization, Modalities, Orthoses, Fine Motor Coord/Patrick, Education re Self Massage Techniques, Home Program - Visit Plan Frequency: 2x /Week Duration: 6 Weeks General Plan: 2x/week for 6 weeks focus on strengthening, stretching, desensitization, and scar mgmt TEXT: Thank you for the opportunity to evaluate your patient. For Medicare and Medicare HMO plans, please review the plan of care and approve it. It will need to be FAXED BACK to us at [phone] for Medicare purposes. Please let me know if there are questions or concerns regarding this plan of care. Physician Signature: Date:
--- NOTE | 2022-12-30 16:05 | OTREVAL_ITS ---
Dr. Petros Ash, DO, It has been my pleasure to treat SLOANE BLACK over the last 6 visits for S52.571D Oth intaartic fx low end R rad subs for clos fx w routn heal. Please see the progress note below for an update on the occupational therapy plan of care! Subjective: pt arrives 7 weeks and 6 days s/p - from left ORIF. pt arrives states he is feeling good- states was sore after therapy yesterday 01/07. pt is limited due to heavy lifting as in lifting work requirements of 75# -100#. Objective/Function: right wrist 60/50 increase from 20/30. pronation 65. supination 55. right primary montessori teacher strength 70# increase from 40#. right lateral pinch 12#. right tripod pinch 10#. pt states he continues to have discomfort with use and lifting and tools/drills. pt is making gains with ROM and strength -. will continue to progress UB strengthening as pt tolerates - ulnes otherwise specified by . Plan Frequency: 2x /Week Duration: 6 Weeks Visits in this POC: 18 Plan: continue with POC. Added BTE. UB PRE as tolerated Goals - Goals Patient Goals: Decrease Swelling/Stiffness, Improve Fine Motor Skills, Use Hand/Wrist/Arm Normally Again, Decrease Tingling/Numbness, Increase ROM Goal:: Patient will demonstrate improved primary montessori teacher/pinch strength in R hand, evidenced by ability to primary montessori teacher/pinch at least 75% of the strength in left hand by discharge. Goal:: Patient will improve R wrist ROM evidenced by gaining at least 20 degrees of active flexion and extension by discharge. Goal:: Patient will improve fine motor dexterity on 9 hole peg test evidenced by improvement in time by 3 seconds by discharge. Goal:: Patient will report decreased sensitivity and numbness, evidenced by self report of reduction in sensitivity and numbness by at least 50% by discharge. Goal:: Patient will be indep with maintaining HEP. Anticipated Interventions Anticipated Interventions: A/AAROM/PROM, Strengthening, Edema Control, Scar Care, Massage, Triggerpoint Release, Desensitization, Modalities, Orthoses, Fine Motor Coord/Patrick, Education re Self Massage Techniques, Home Program Please do not hesitate to contact me at [phone] by phone or if you have questions or concerns regarding this new plan of care! Sincerely, Dora Caceres, OTR/L, CHT
--- NOTE | 2023-02-01 16:14 | HP.OTDCSUM_ITS ---
It has been my pleasure to treat SLOANE BLACK under orders from Dr. Petros Ash DO, for the diagnosis of S52.571D Oth intaartic fx low end R rad subs for clos fx w tamera joseph for a total of 13 visit(s). Please see the following information for a summary of their discharge status. % Improvement: 85 Objective/Function: right wrist 70/55 increase from 15/30*. right forearm supination/pronation equal to unaffected. right consumer loan specialist strength 100# increase from 40#. right lateral consumer loan specialist 14# increase from 12#. right tripod pinch 18# increased from 5#. right tip pinch 16# increased from 4#. pt demo functional ROM and strength -. At this time therapist advised pt to continue with his use of right UE as tolerated. pt agree to D/C. Patient Goals: Decrease Swelling/Stiffness, Improve Fine Motor Skills, Use Hand/Wrist/Arm Normally Again, Decrease Tingling/Numbness, Increase ROM Goal:: Patient will demonstrate improved consumer loan specialist/pinch strength in R hand, evidenced by ability to consumer loan specialist/pinch at least 75% of the strength in left hand by discharge. Goal:: Patient will improve R wrist ROM evidenced by gaining at least 20 degrees of active flexion and extension by discharge. Goal:: Patient will improve fine motor dexterity on 9 hole peg test evidenced by improvement in time by 3 seconds by discharge. Goal:: Patient will report decreased sensitivity and numbness, evidenced by self report of reduction in sensitivity and numbness by at least 50% by discharge. Goal:: Patient will be indep with maintaining HEP. Plan: continue with POC. Added BTE. UB PRE as tolerated Discharge Comments: pt was seen and has made significant gains in his ROM and strength. Pt has met OT goals at this time and can be D/C. Pt is to increase use of right UE as tolerated. pt demo understanding and agree to POC. If there are questions or concerns regarding this patient's occupational therapy, please fell free to call me at [phone]. Thank you for the referral of this patient. Sincerely, Dora Caceres, OTR/L, CHT
== END 2023-02-01 19:00 | disposition home or self-care (01) ==
LOC: OT 16:00
PROVIDERS: PCP Registered Nurse; Referring Provider Student in an Organized Health Care Education/Training Program; Visit Provider Student in an Organized Health Care Education/Training Program
DX: S52.571D Other intraarticular fracture of lower end of right radius, subsequent encounter for closed fracture with routine healing (principal)
CPT/HCPCS: 97110; 97140; 97166; 97530